=== PATIENT | female | born 1995 | race Two or more races ===

== ENCOUNTER 2025-02-21 15:18 | Outpatient (CLI) | payer OTHER | END 2025-02-21 15:19 | disposition home or self-care (01) | LOC: PRENATAL 15:18 | DX: O44.00 Complete placenta previa NOS or without hemorrhage, unspecified trimester (principal); Z3A.19 19 weeks gestation of pregnancy ==

== ENCOUNTER → 2025-05-18 14:59 | Outpatient (CLI) | payer OTHER | END | disposition home or self-care (01) | LOC: PRENATAL 14:59 | PROVIDERS: ATTEND Obstetrics & Gynecology Maternal & Fetal Medicine | DX: O26.849 Uterine size-date discrepancy, unspecified trimester (principal); O36.8130 Decreased fetal movements, third trimester, not applicable or unspecified; Z3A.33 33 weeks gestation of pregnancy ==